=== PATIENT | male | born 1970 ===

== ENCOUNTER 2020-07-04 22:41 | Emergency (ER) | payer OTHER ==
[~2020-07-04] VITALS: Ht 180.3 cm; Wt 98.0 kg
[2020-07-04 23:02] LABS: Source, Urine Clean Catch
[2020-07-04 23:05] LABS: Bilirubin, Urine Neg (Neg); Blood, Urine Neg (Neg); Glucose Qualitative, Urine Neg (Neg); Ketones, Urine Neg (Neg); Leukocyte Esterase, Urine Neg (Neg); Nitrite, Urine Neg (Neg); Protein, Urine Neg (Neg); Urobilinogen, Urine NORM (Normal); pH, Urine 6.5 (5.0-8.0)
[2020-07-04 23:06] LABS: Appearance, Urine Clear (Clear); Color, Urine Yellow (P-Yellow)
[2020-07-05] MEDS ORDERED: Percocet 5-3251 EACH PO ×2 (00:20→01:41)
[2020-07-05] MEDS ORDERED: TAMS.4ER PO (00:20)
[2020-07-05 00:46] LABS: BASOPHILS ABSOLUTE AUTO 0.03 K/mm3 (0.00-0.23); BASOPHILS PERCENT AUTO 0 % (0-2); EOSINOPHILS PERCENT AUTO 1 % (0-6); Hematocrit 43.9 % (37.0-53.0); IMMATURE GRAN ABSOLUTE AUTO 0.04 K/mm3 (0.00-0.10); IMMATURE GRAN PERCENT AUTO 0 % (0-1); LYMPHOCYTES ABSOLUTE AUTO 1.16 K/mm3 (0.84-5.20); LYMPHOCYTES PERCENT AUTO 9 % (21-46); MONOCYTES ABSOLUTE AUTO 1.02 K/mm3 (0.16-1.47); MONOCYTES PERCENT AUTO 8 % (4-13); Mean Corpuscular HGB 28.8 pg (26.0-34.0); Mean Corpuscular HGB Conc 34.2 g/dL (31.5-36.5); Mean Corpuscular Volume 84 fL (80-100); Mean Platelet Volume 9.1 fL (9.1-12.4); NEUTROPHILS ABSOLUTE AUTO 10.08 K/mm3 (1.96-9.15); NEUTROPHILS PERCENT AUTO 81 % (41-73); Platelet Count 151 K/mm3 (150-400); RDW Coefficient Variation 12.6 % (11.7-14.2); RDW Standard Deviation 38.4 fL (35.1-46.3); Red Blood Cell Count 5.21 M/mm3 (4.30-5.90); White Blood Cell Count 12.43 K/mm3 (4.00-11.30)
[2020-07-05 01:02] LABS: Albumin, Blood 3.8 g/dL (3.4-5.0); Albumin/Globulin Ratio 1.1 (0.8-1.8); Bilirubin, Total 0.5 mg/dL (0.1-1.0); Calcium, Blood 8.8 mg/dL (8.5-10.1); Creatinine, Blood 1.46 mg/dL (0.60-1.20); Globulin, Blood 3.5 g/dL (2.2-4.0); Potassium, Blood 3.4 mmol/L (3.5-5.5); Total Protein, Blood 7.3 g/dL (6.4-8.2)
== END 2020-07-05 01:56 | disposition home or self-care (01) ==
LOC: ER 22:41
PROVIDERS: Emergency Medicine
DX: N13.2 Hydronephrosis with renal and ureteral calculous obstruction (principal); K76.0 Fatty (change of) liver, not elsewhere classified; R16.1 Splenomegaly, not elsewhere classified
CPT/HCPCS: 36415; 74176; 80053; 81003; 85025; 96374; 99284; A9270; J1885

== ENCOUNTER 2020-12-19 10:17 | Emergency (ER) | payer OTHER ==
[~2020-12-19] VITALS: Ht 175.3 cm; Wt 90.7 kg
[~2020-12-19 10:17] MED LIST: Percocet 5-3251 EACH PO; TAMS.4ER PO
== END 2020-12-19 11:34 | disposition home or self-care (01) ==
LOC: ER 10:17
DX: U07.1 COVID-19 (principal)
CPT/HCPCS: 99284

== ENCOUNTER 2020-12-25 21:45 | Inpatient (IN) | payer OTHER ==
[~2020-12-25] VITALS: Ht 175.3 cm; Wt 100.7 kg
[2020-12-25 23:46] LABS: BASOPHILS ABSOLUTE AUTO 0.01 K/mm3 (0.00-0.23); BASOPHILS PERCENT AUTO 0 % (0-2); EOSINOPHILS PERCENT AUTO 0 % (0-6); Hematocrit 41.6 % (37.0-53.0); Hemoglobin 14.7 g/dL (13.5-17.5); IMMATURE GRAN ABSOLUTE AUTO 0.03 K/mm3 (0.00-0.10); IMMATURE GRAN PERCENT AUTO 0 % (0-1); LYMPHOCYTES ABSOLUTE AUTO 0.72 K/mm3 (0.84-5.20); LYMPHOCYTES PERCENT AUTO 10 % (21-46); MONOCYTES PERCENT AUTO 7 % (4-13); Mean Corpuscular HGB 28.9 pg (26.0-34.0); Mean Corpuscular HGB Conc 35.3 g/dL (31.5-36.5); Mean Corpuscular Volume 82 fL (80-100); Mean Platelet Volume 9.6 fL (9.1-12.4); NEUTROPHILS ABSOLUTE AUTO 5.83 K/mm3 (1.96-9.15); NEUTROPHILS PERCENT AUTO 82 % (41-73); Platelet Count 127 K/mm3 (150-400); RDW Coefficient Variation 12.8 % (11.7-14.2); RDW Standard Deviation 38.5 fL (35.1-46.3); Red Blood Cell Count 5.08 M/mm3 (4.30-5.90); White Blood Cell Count 7.09 K/mm3 (4.00-11.30)
[2020-12-26 00:01] LABS: Alanine Aminotransfer (ALT/SGP 124 U/L (12-78); Albumin, Blood 2.9 g/dL (3.4-5.0); Albumin/Globulin Ratio 0.8 (0.8-1.8); Alk Phos 56 U/L (50-136); Anion Gap 6 mmol/L (6-16); Aspartate Aminotrans (AST/SGOT 93 U/L (12-37); Bilirubin, Total 0.5 mg/dL (0.1-1.0); Blood Urea Nitrogen 9 mg/dL (8-24); Bun/Creatinine Ratio 9.7 (12.0-20.0); CO2, Blood 26 mmol/L (21-32); Calcium, Blood 7.8 mg/dL (8.5-10.1); Chloride, Blood 97 mmol/L (98-108); Creatinine, Blood 0.92 mg/dL (0.60-1.20); Globulin, Blood 3.6 g/dL (2.2-4.0); Glomerular Filtration Rate >60 (60-); Glucose, Blood 162 mg/dL (70-99); Potassium, Blood 3.9 mmol/L (3.5-5.5); Sodium, Blood 129 mmol/L (136-145); Total Protein, Blood 6.5 g/dL (6.4-8.2)
[2020-12-26 05:07] LABS: Anion Gap 7 mmol/L (6-16); Blood Urea Nitrogen 11 mg/dL (8-24); Bun/Creatinine Ratio 11.4 (12.0-20.0); CO2, Blood 27 mmol/L (21-32); Calcium, Blood 7.7 mg/dL (8.5-10.1); Chloride, Blood 98 mmol/L (98-108); Creatinine, Blood 0.96 mg/dL (0.60-1.20); Glomerular Filtration Rate >60 (60-); Glucose, Blood 219 mg/dL (70-99); Potassium, Blood 3.9 mmol/L (3.5-5.5); Sodium, Blood 132 mmol/L (136-145)
--- NOTE | 2020-12-26 05:32 | NUR ---
shift summary pt rested well through night. alert and oriented, able to make needs known. cooperative with plan of care. swiss speaking, knows very little tajik. hand cutter phone at bedside. sats >90% on 5-6lnc. tele nsr - rate 60-70's. sba to commode, voids to urinal. no c/o pain. vss. call light within reach, bed in lowest position. will continue to monitor.
--- NOTE | 2020-12-26 20:28 | NUR ---
PT ATE 1/2 OF MEALS AND DENIED NAUSEA OR TASTE DISTURBANCE BUT REPORTED SEVERELY DIMINISHED APPETITE; PT ON 7LNC SATTING 92-94%; PT REPORTED FEELING "SUFFOCATING" FEELINGS IN HIS LUNGS BUT DENIED NEEDING ANY RX; MOBILE SOLUTIONS ARCHITECT PHONE NOT NEEDED AT THIS TIME BUT WOULD BE NECESSARY IF RN DID NOT SPEAK PT'S LANGUAGE; PT DENIES CONCERNS AT THIS TIME
--- NOTE | 2020-12-26 23:40 | NUR ---
ASSUMED CARE RECEIVED REPORT FROM LONDON TIN FLIPPER. PT TRANSFERRED TO MEDICAL FLOOR VIA BED, SETTLED IN TO ROOM. ON 7L/NC. VS REVIEWED,WNL. NO ACUTE NEEDS ASSESSED AT THIS TIME. CALL LIGHT, POSSESSIONS IN REACH. WCTM.
--- NOTE | 2020-12-27 05:45 | NUR ---
TRAIN ENGINEER SUMMARY PT ASLEEP, IN NAD. VS REVIEWED,WNL. O2 SATS IN LOW 90'S ON 8L/NC. PT DENIES SOB, DYSPNEA. APPEARED TO SLEEP WELL OVERNIGHT. NO ACUTE CONCERNS TO REPORT AT THIS TIME. CALL LIGHT, POSSESSIONS IN REACH, BED IN LOW AND LOCKED POSITION. WILL CONTINUE TO PROVIDE CARE UNTIL HANDOFF GIVEN TO ONCOMING RN.
--- NOTE | 2020-12-27 18:03 | NUR ---
SHIFT SUMMARY NO ACUTE CHANGES TO PRESENT THIS SHIFT. PT IS A&O, PLEASANT AND GRATEFUL FOR CAR. MOSTLY [place] SPEAKING. DR LAROSE IN TO SEE PT THIS AM. ABLE TO CLARIFY ORDERS AND EXPLAIN PLAN OF CARE BETTER SHE IS ABLE TO COMMUNICATE IN PORTUGUESE. PT IS EATING AND DRINKING. BIOX REMAINED ABOVE 90% TODAY. NO C/O SOB. DENIED FURTHER NEEDS AT THIS TIME. CALL LT IN REACH. USING URINAL AT BS INDEPENDENTLY.
--- NOTE | 2020-12-28 02:31 | NUR ---
REPORT GIVEN TO NICK ORTIZ. NO ACUTE CHANGES SINCE CHANGE OF SHIFT. PATIENT ALTERT AND ORIENTED, ABLE TO MAKE NEEDS KNOWN. PATIENT IS ON 9L VIA HIGH FLOW NC. HE ATTEMPTED TO PRONE THIS EVENING, UNSUARE OF HOW LONG HE WAS ABLE TO TOLERATE IT. HE IS PLEASANT AND COOPERATIVE WITH CARE. BED LOW AND LOCKED TRAN LIGHT WITHIN REACH.
--- NOTE | 2020-12-28 02:52 | NUR ---
RECEIVED REPORT FROM DIANA BARAJAS. ASSUMED CARE OF PT. WILL PROVIDE CARE THE REST OF SHIFT.
[2020-12-28 05:04] LABS: BASOPHILS ABSOLUTE AUTO 0.01 K/mm3 (0.00-0.23); BASOPHILS PERCENT AUTO 0 % (0-2); EOSINOPHILS PERCENT AUTO 0 % (0-6); Hematocrit 45.6 % (37.0-53.0); Hemoglobin 15.3 g/dL (13.5-17.5); IMMATURE GRAN ABSOLUTE AUTO 0.07 K/mm3 (0.00-0.10); IMMATURE GRAN PERCENT AUTO 1 % (0-1); LYMPHOCYTES ABSOLUTE AUTO 0.84 K/mm3 (0.84-5.20); LYMPHOCYTES PERCENT AUTO 11 % (21-46); MONOCYTES ABSOLUTE AUTO 0.82 K/mm3 (0.16-1.47); MONOCYTES PERCENT AUTO 11 % (4-13); Mean Corpuscular HGB 28.5 pg (26.0-34.0); Mean Corpuscular HGB Conc 33.6 g/dL (31.5-36.5); Mean Corpuscular Volume 85 fL (80-100); Mean Platelet Volume 9.2 fL (9.1-12.4); NEUTROPHILS ABSOLUTE AUTO 5.81 K/mm3 (1.96-9.15); NEUTROPHILS PERCENT AUTO 77 % (41-73); Platelet Count 206 K/mm3 (150-400); RDW Coefficient Variation 12.9 % (11.7-14.2); RDW Standard Deviation 39.8 fL (35.1-46.3); Red Blood Cell Count 5.36 M/mm3 (4.30-5.90); White Blood Cell Count 7.55 K/mm3 (4.00-11.30)
[2020-12-28 05:40] LABS: Alanine Aminotransfer (ALT/SGP 78 U/L (12-78); Albumin, Blood 2.6 g/dL (3.4-5.0); Albumin/Globulin Ratio 0.7 (0.8-1.8); Alk Phos 56 U/L (50-136); Anion Gap 7 mmol/L (6-16); Aspartate Aminotrans (AST/SGOT 28 U/L (12-37); Bilirubin, Total 0.4 mg/dL (0.1-1.0); Blood Urea Nitrogen 29 mg/dL (8-24); Bun/Creatinine Ratio 31.2 (12.0-20.0); CO2, Blood 28 mmol/L (21-32); Calcium, Blood 8.8 mg/dL (8.5-10.1); Chloride, Blood 101 mmol/L (98-108); Creatinine, Blood 0.93 mg/dL (0.60-1.20); Globulin, Blood 3.9 g/dL (2.2-4.0); Glomerular Filtration Rate >60 (60-); Glucose, Blood 202 mg/dL (70-99); Potassium, Blood 3.9 mmol/L (3.5-5.5); Sodium, Blood 136 mmol/L (136-145); Total Protein, Blood 6.5 g/dL (6.4-8.2)
--- NOTE | 2020-12-28 06:32 | NUR ---
SHIFT SUMMARY: PT A/O. ABLE TO STATE NEEDS APPROPRIATELY. MOSTLY FIJIAN SPEAKING. ABLE TO UNDERSTAND MOST THINGS. PT STATES HE'S BETTER. CURRENTLY O 9L VIA HIGH FLOW NC WITH SATS AT 91-92%. PT ABLE TO BREATHE DEEPLY TO BUMP SATS UP. SINUS AT 61 PER TELE MONITOR. MEDS WHOLE WITH WATER. WILL CONTINUE TO PROVIDE CARE UNTIL SHIFT REPORT.
--- NOTE | 2020-12-28 17:32 | NUR ---
SHIFT SUMMARY PT AOX4; CALLS APPROPRIATELY. HARD TO COMMUNICATE REGARDS TO LANGUAGE BARRIER AT TIMES, BUT ABLE TO MAKE NEEDS KNOWN. PT ENCOUARAGED TO PRONE POSITION. PLACED THE PT ON 10L BECAUSE PT WAS DESATING ON EXERTION; NOW BACK ON 9L HIGH 02 ON NC WITH LOW 90S% SATS. DENIES PAIN. BED IS IN THE LOWEST POSITION AND CALL LIGHT WITHIN REACH
[2020-12-29 06:19] LABS: BASOPHILS ABSOLUTE AUTO 0.03 K/mm3 (0.00-0.23); BASOPHILS PERCENT AUTO 0 % (0-2); EOSINOPHILS PERCENT AUTO 0 % (0-6); Hematocrit 48.4 % (37.0-53.0); IMMATURE GRAN ABSOLUTE AUTO 0.15 K/mm3 (0.00-0.10); IMMATURE GRAN PERCENT AUTO 2 % (0-1); LYMPHOCYTES ABSOLUTE AUTO 1.31 K/mm3 (0.84-5.20); LYMPHOCYTES PERCENT AUTO 15 % (21-46); MONOCYTES ABSOLUTE AUTO 1.04 K/mm3 (0.16-1.47); MONOCYTES PERCENT AUTO 12 % (4-13); Mean Corpuscular HGB 28.6 pg (26.0-34.0); Mean Corpuscular HGB Conc 33.1 g/dL (31.5-36.5); Mean Corpuscular Volume 87 fL (80-100); Mean Platelet Volume 9.3 fL (9.1-12.4); NEUTROPHILS ABSOLUTE AUTO 6.33 K/mm3 (1.96-9.15); NEUTROPHILS PERCENT AUTO 72 % (41-73); Platelet Count 228 K/mm3 (150-400); RDW Standard Deviation 40.9 fL (35.1-46.3); Red Blood Cell Count 5.59 M/mm3 (4.30-5.90); White Blood Cell Count 8.86 K/mm3 (4.00-11.30)
[2020-12-29 06:40] LABS: Alanine Aminotransfer (ALT/SGP 94 U/L (12-78); Albumin, Blood 2.8 g/dL (3.4-5.0); Albumin/Globulin Ratio 0.7 (0.8-1.8); Alk Phos 58 U/L (50-136); Anion Gap 5 mmol/L (6-16); Aspartate Aminotrans (AST/SGOT 42 U/L (12-37); Bilirubin, Total 0.6 mg/dL (0.1-1.0); Blood Urea Nitrogen 29 mg/dL (8-24); CO2, Blood 30 mmol/L (21-32); Calcium, Blood 8.7 mg/dL (8.5-10.1); Chloride, Blood 102 mmol/L (98-108); Creatinine, Blood 0.94 mg/dL (0.60-1.20); Globulin, Blood 3.9 g/dL (2.2-4.0); Glomerular Filtration Rate >60 (60-); Glucose, Blood 144 mg/dL (70-99); Potassium, Blood 3.9 mmol/L (3.5-5.5); Sodium, Blood 137 mmol/L (136-145); Total Protein, Blood 6.7 g/dL (6.4-8.2)
--- NOTE | 2020-12-29 06:57 | NUR ---
SHIFT SUMMARY PT IS A 50 Y/O MALE, ADMITTED FOR COVID AND IN ENHANCED PRECAUTIONS. HE IS A&O X 4, INDEPENDENT WITH THE URINAL. PT DESATS TO THE 80S WITH ANY EXERTION, CURRENTLY AT 9L O2 VIA NC. NO C/O NAUSEA OR PAIN. VITAL SIGNS OTHERWISE STABLE, TELE DC'D. NO ACUTE CHANGES IN PT CONDITION NOTED DURING THE NIGHT. WILL CONTINUE TO MONITOR AND TREAT PER EMAR UNTIL HAND OFF TO DAY SHIFT RN.
--- NOTE | 2020-12-29 18:06 | NUR ---
SHIFT SUMMARY PT AOX4; CALLS APPROPRIATELY. PT DENIES PAIN, DYSPNEA ON EXERTION. PT IS ON 9L OF 02 SATS HIGH 80'S TO LOW 90S. PT CAN DESAT TO LOW 80'S WHEN MOVING OR GOING TO THE BATHROOM. BED IS IN THE LOWEST POSITION AND CALL LIGHT WITHIN REACH
[2020-12-30 05:56] LABS: BASOPHILS ABSOLUTE AUTO 0.04 K/mm3 (0.00-0.23); BASOPHILS PERCENT AUTO 0 % (0-2); EOSINOPHILS PERCENT AUTO 0 % (0-6); Hematocrit 47.8 % (37.0-53.0); Hemoglobin 16.3 g/dL (13.5-17.5); IMMATURE GRAN ABSOLUTE AUTO 0.24 K/mm3 (0.00-0.10); IMMATURE GRAN PERCENT AUTO 2 % (0-1); LYMPHOCYTES ABSOLUTE AUTO 1.41 K/mm3 (0.84-5.20); LYMPHOCYTES PERCENT AUTO 14 % (21-46); MONOCYTES ABSOLUTE AUTO 0.98 K/mm3 (0.16-1.47); MONOCYTES PERCENT AUTO 10 % (4-13); Mean Corpuscular HGB 28.4 pg (26.0-34.0); Mean Corpuscular HGB Conc 34.1 g/dL (31.5-36.5); Mean Corpuscular Volume 83 fL (80-100); Mean Platelet Volume 9.5 fL (9.1-12.4); NEUTROPHILS PERCENT AUTO 74 % (41-73); Platelet Count 250 K/mm3 (150-400); RDW Coefficient Variation 12.6 % (11.7-14.2); RDW Standard Deviation 37.9 fL (35.1-46.3); Red Blood Cell Count 5.73 M/mm3 (4.30-5.90); White Blood Cell Count 10.07 K/mm3 (4.00-11.30)
--- NOTE | 2020-12-30 06:00 | NUR ---
SHIFT SUMMARY PT IS A 50 Y/O MALE, ADMITTED FOR ACUTE RESPIRATORY FAILURE R/T COVID AND IN ENHANCED ISOLATION. HE IS A&O X 4, 1PA OUT OF BED. HE IS CURRENTLY ON 9L HIGH FLOW VIA NC, SATTING > 90%. PT STATES HE IS STARTING TO FEEL BETTER. NO C/O NAUSEA OR PAIN. VITAL SIGNS STABLE. PT'S CALLED AND WAS UPDATED ON HIS CONDITION. NO ACUTE CHANGES IN PT CONDITION NOTED DURING THE NIGHT. WILL CONTINUE TO MONITOR AND TREAT PER EMAR UNTIL HAND OFF TO DAY SHIFT RN.
[2020-12-30 06:11] LABS: Alanine Aminotransfer (ALT/SGP 123 U/L (12-78); Albumin, Blood 2.8 g/dL (3.4-5.0); Albumin/Globulin Ratio 0.7 (0.8-1.8); Alk Phos 52 U/L (50-136); Anion Gap 6 mmol/L (6-16); Aspartate Aminotrans (AST/SGOT 53 U/L (12-37); Bilirubin, Total 0.6 mg/dL (0.1-1.0); Blood Urea Nitrogen 21 mg/dL (8-24); Bun/Creatinine Ratio 26.9 (12.0-20.0); CO2, Blood 23 mmol/L (21-32); Calcium, Blood 8.7 mg/dL (8.5-10.1); Chloride, Blood 105 mmol/L (98-108); Creatinine, Blood 0.78 mg/dL (0.60-1.20); Globulin, Blood 3.8 g/dL (2.2-4.0); Glomerular Filtration Rate >60 (60-); Glucose, Blood 122 mg/dL (70-99); Potassium, Blood 4.1 mmol/L (3.5-5.5); Sodium, Blood 134 mmol/L (136-145); Total Protein, Blood 6.6 g/dL (6.4-8.2)
--- NOTE | 2020-12-30 14:12 | NUR ---
It was nice to visit the patient again as I had first met him last Wednesday and we had a chance to get to know each other and pray together. I prayed for his full recovery so he could be reunited with his family as his is not fully well and he is concerned about his son. 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 I reassured him of God's awareness of his situation so he could rest easy and not feel like he is losing or wasting time allowing himself a full recovery.
--- NOTE | 2020-12-30 19:52 | NUR ---
SHIFT SUMMARY: PT A/O PLEASANT AND COOPERATIVE. PT O2 SATS 91-95% ON 9 LPM. SOB AT REST IS MILD. PT DENIED PAIN/N/V. NO CHANGES TO O2 TODAY. NO WORSENING SYMPTOMS.
[2020-12-31 05:26] LABS: BASOPHILS ABSOLUTE AUTO 0.06 K/mm3 (0.00-0.23); BASOPHILS PERCENT AUTO 1 % (0-2); EOSINOPHILS ABSOLUTE AUTO 0.03 K/mm3 (0.00-0.68); EOSINOPHILS PERCENT AUTO 0 % (0-6); Hematocrit 48.6 % (37.0-53.0); Hemoglobin 16.7 g/dL (13.5-17.5); IMMATURE GRAN ABSOLUTE AUTO 0.43 K/mm3 (0.00-0.10); IMMATURE GRAN PERCENT AUTO 4 % (0-1); LYMPHOCYTES ABSOLUTE AUTO 1.22 K/mm3 (0.84-5.20); LYMPHOCYTES PERCENT AUTO 10 % (21-46); MONOCYTES ABSOLUTE AUTO 1.09 K/mm3 (0.16-1.47); MONOCYTES PERCENT AUTO 9 % (4-13); Mean Corpuscular HGB 28.7 pg (26.0-34.0); Mean Corpuscular HGB Conc 34.4 g/dL (31.5-36.5); Mean Corpuscular Volume 84 fL (80-100); Mean Platelet Volume 9.1 fL (9.1-12.4); NEUTROPHILS ABSOLUTE AUTO 9.13 K/mm3 (1.96-9.15); NEUTROPHILS PERCENT AUTO 76 % (41-73); Platelet Count 277 K/mm3 (150-400); RDW Coefficient Variation 12.5 % (11.7-14.2); RDW Standard Deviation 37.8 fL (35.1-46.3); Red Blood Cell Count 5.82 M/mm3 (4.30-5.90); White Blood Cell Count 11.96 K/mm3 (4.00-11.30)
[2020-12-31 05:46] LABS: Alanine Aminotransfer (ALT/SGP 112 U/L (12-78); Albumin, Blood 2.9 g/dL (3.4-5.0); Albumin/Globulin Ratio 0.7 (0.8-1.8); Alk Phos 59 U/L (50-136); Anion Gap 5 mmol/L (6-16); Aspartate Aminotrans (AST/SGOT 24 U/L (12-37); Bilirubin, Total 0.8 mg/dL (0.1-1.0); Blood Urea Nitrogen 19 mg/dL (8-24); Bun/Creatinine Ratio 24.5 (12.0-20.0); CO2, Blood 26 mmol/L (21-32); Calcium, Blood 8.7 mg/dL (8.5-10.1); Chloride, Blood 104 mmol/L (98-108); Creatinine, Blood 0.77 mg/dL (0.60-1.20); Globulin, Blood 3.9 g/dL (2.2-4.0); Glomerular Filtration Rate >60 (60-); Glucose, Blood 119 mg/dL (70-99); Potassium, Blood 4.1 mmol/L (3.5-5.5); Sodium, Blood 135 mmol/L (136-145); Total Protein, Blood 6.8 g/dL (6.4-8.2)
--- NOTE | 2020-12-31 07:59 | NUR ---
SHIFT SUMMARY NO ACUTE CHANGES. PT IS A&O X4, ABLE TO CALL TO MAKE NEEDS KNOWN. GUINEAN SPEAKING, UNDERSTANDS LITHUANIAN WHEN SPOKEN CLEARLY AND SLOWLY. ROOM AIR, LUNG SOUNDS DIMINSHED THROUGH OUT. REPORT GIVEN TO DAY TIME NURSE. .
--- NOTE | 2020-12-31 18:03 | NUR ---
SHIFT SUMMARY NO ACUTE CHANGES NOTED TO PT THIS SHIFT. PT AAOX4, ABLE TO MAKE NEEDS KNOWN. PLEASANT AND COOPERATIVE TO CARE. NO C/O PAIN. NO C/O CP OR N&V. PT NOTED TO HAVE SOB WITH REST. PT CONT ON O2 9LPM VIA NC. SATS >91-94%. PT CONTINUES IV ABX ORDERED, NO ASE NOTED. BED AT LOWEST POSITION. CALL LIGHT WITHIN REACH.
--- NOTE | 2021-01-01 04:13 | NUR ---
YARD LABORER SUMMARY PT A/O X4. ABLE TO SPEAK LITTLE BIT OF SAMOAN. PT'S PRIMARY LANGUAGE IS GRENADIAN. CONTINUES TO BE ON 9L VIA OXYMIZER SATTING IN THE LOW TO MID 90'S. DENIES PAIN. SOME SOB WHILE AT REST. NO ACUTE CHANGES, CALL LIGHT WITHIN REACH, WILL CONTINUE TO MONITOR. NO ACUTE CHANGES, WILL CONTINUE TO MONITOR.
--- NOTE | 2021-01-01 19:01 | NUR ---
SHIFT SUMMARY NO ACUTE CHANGES NOTED TO PT THIS SHIFT. AAOX4, ABLE TO MAKE NEEDS KNOWN, PLEASANT AND COOPERATIVE TO CARE. NO C/O PAIN OR ANY DISCOMFORT THIS SHIFT. NO C/O CP OR N&V. PT ON 8 LPM O2 VIA NC, SATTING 91-94%. PT INDEPENDENTLY USES URINAL IN BED. BED AT LOWEST POSITION. CALL LIGHT WITHIN REACH.
--- NOTE | 2021-01-02 14:46 | NUR ---
Spiritual Care visit provided: actually was able to visit pt at the same time as Dr. Mercado. Pt had his on the phone so it was a four way conversation at the end of which I prayed for Jose and his family and the doctor. It was a special time of connection. Pt was very encouraged by the visit from both of us.
--- NOTE | 2021-01-02 17:23 | NUR ---
SHIFT SUMMARY PATIENT ALERT AND ORIENTED THROUGHOUT THIS SHIFT. PATIENT CALM AND COOPERATIVE WITH CARE THIS SHIFT. PATIENT TITRATED TO 5L O2 FROM 8L THIS AM. O2 SATS CURRENTLY 95-96%. PATIENT DENIES PAIN OR SOB THIS SHIFT. PATIENT CURRENTLY SITTING UP IN BED WATCHING TELEVISION.
[2021-01-03 04:32] LABS: BASOPHILS ABSOLUTE AUTO 0.02 K/mm3 (0.00-0.23); BASOPHILS PERCENT AUTO 0 % (0-2); EOSINOPHILS PERCENT AUTO 0 % (0-6); Hematocrit 45.5 % (37.0-53.0); Hemoglobin 15.8 g/dL (13.5-17.5); IMMATURE GRAN ABSOLUTE AUTO 0.21 K/mm3 (0.00-0.10); IMMATURE GRAN PERCENT AUTO 2 % (0-1); LYMPHOCYTES ABSOLUTE AUTO 0.79 K/mm3 (0.84-5.20); LYMPHOCYTES PERCENT AUTO 8 % (21-46); MONOCYTES ABSOLUTE AUTO 0.22 K/mm3 (0.16-1.47); MONOCYTES PERCENT AUTO 2 % (4-13); Mean Corpuscular HGB 28.6 pg (26.0-34.0); Mean Corpuscular HGB Conc 34.7 g/dL (31.5-36.5); Mean Corpuscular Volume 82 fL (80-100); NEUTROPHILS ABSOLUTE AUTO 8.28 K/mm3 (1.96-9.15); NEUTROPHILS PERCENT AUTO 87 % (41-73); Platelet Count 306 K/mm3 (150-400); RDW Coefficient Variation 12.2 % (11.7-14.2); RDW Standard Deviation 37.2 fL (35.1-46.3); Red Blood Cell Count 5.52 M/mm3 (4.30-5.90); White Blood Cell Count 9.52 K/mm3 (4.00-11.30)
[2021-01-03 04:59] LABS: Alanine Aminotransfer (ALT/SGP 90 U/L (12-78); Albumin, Blood 2.7 g/dL (3.4-5.0); Albumin/Globulin Ratio 0.7 (0.8-1.8); Alk Phos 57 U/L (50-136); Anion Gap 5 mmol/L (6-16); Aspartate Aminotrans (AST/SGOT 20 U/L (12-37); Bilirubin, Total 0.7 mg/dL (0.1-1.0); Blood Urea Nitrogen 24 mg/dL (8-24); Bun/Creatinine Ratio 26.7 (12.0-20.0); CO2, Blood 26 mmol/L (21-32); Calcium, Blood 8.5 mg/dL (8.5-10.1); Chloride, Blood 103 mmol/L (98-108); Glomerular Filtration Rate >60 (60-); Glucose, Blood 217 mg/dL (70-99); Potassium, Blood 4.7 mmol/L (3.5-5.5); Sodium, Blood 134 mmol/L (136-145); Total Protein, Blood 6.7 g/dL (6.4-8.2)
--- NOTE | 2021-01-03 06:48 | NUR ---
SUMMARY PT SLEPT WELL FOR MOST OF SHIFT. PT WAS TOLERATING 5LPM WELL. PT THIS AM COMPLAINED OF NOT BEING ABLE TO FEEL THE OXYGEN. PT DENIED SOB. O2 WAS TURNED UP TO 8LPM AND PT REPORTED THAT HE COULD FEEL THE O2. PT CURRENTLY SLEEPING AND IN NO DISTRESS. CALL LIGHT IN REACH.
--- NOTE | 2021-01-03 18:23 | NUR ---
SHIFT SUMMARY PATIENT ALERT AND ORIENTED, INDEPENDENT IN THE ROOM. PATIENT REDUCED TO 5L O2 FROM 8L THIS AM. PATIENT DENIES FEELING SOB. NO ACUTE CHANGES THIS SHIFT. PATIENT LYING IN BED THROUGHOUT MUCH OF THIS SHIFT, DENIES NEEDS.
[2021-01-04 05:21] LABS: BASOPHILS ABSOLUTE AUTO 0.02 K/mm3 (0.00-0.23); BASOPHILS PERCENT AUTO 0 % (0-2); EOSINOPHILS PERCENT AUTO 0 % (0-6); Hematocrit 44.9 % (37.0-53.0); Hemoglobin 15.5 g/dL (13.5-17.5); IMMATURE GRAN ABSOLUTE AUTO 0.15 K/mm3 (0.00-0.10); IMMATURE GRAN PERCENT AUTO 1 % (0-1); LYMPHOCYTES ABSOLUTE AUTO 0.79 K/mm3 (0.84-5.20); LYMPHOCYTES PERCENT AUTO 7 % (21-46); MONOCYTES ABSOLUTE AUTO 0.44 K/mm3 (0.16-1.47); MONOCYTES PERCENT AUTO 4 % (4-13); Mean Corpuscular HGB 28.7 pg (26.0-34.0); Mean Corpuscular HGB Conc 34.5 g/dL (31.5-36.5); Mean Corpuscular Volume 83 fL (80-100); Mean Platelet Volume 9.3 fL (9.1-12.4); NEUTROPHILS ABSOLUTE AUTO 9.45 K/mm3 (1.96-9.15); NEUTROPHILS PERCENT AUTO 87 % (41-73); Platelet Count 289 K/mm3 (150-400); RDW Coefficient Variation 12.4 % (11.7-14.2); RDW Standard Deviation 37.4 fL (35.1-46.3); White Blood Cell Count 10.85 K/mm3 (4.00-11.30)
[2021-01-04 05:49] LABS: Alanine Aminotransfer (ALT/SGP 80 U/L (12-78); Albumin, Blood 2.7 g/dL (3.4-5.0); Albumin/Globulin Ratio 0.7 (0.8-1.8); Alk Phos 53 U/L (50-136); Anion Gap 7 mmol/L (6-16); Aspartate Aminotrans (AST/SGOT 8 U/L (12-37); Bilirubin, Total 0.5 mg/dL (0.1-1.0); Blood Urea Nitrogen 23 mg/dL (8-24); Bun/Creatinine Ratio 32.2 (12.0-20.0); CO2, Blood 25 mmol/L (21-32); Calcium, Blood 8.6 mg/dL (8.5-10.1); Chloride, Blood 104 mmol/L (98-108); Creatinine, Blood 0.71 mg/dL (0.60-1.20); Globulin, Blood 3.7 g/dL (2.2-4.0); Glomerular Filtration Rate >60 (60-); Glucose, Blood 215 mg/dL (70-99); Potassium, Blood 4.4 mmol/L (3.5-5.5); Sodium, Blood 136 mmol/L (136-145); Total Protein, Blood 6.4 g/dL (6.4-8.2)
--- NOTE | 2021-01-04 12:40 | NUR ---
HOME OXYGEN STUDY. 92% ON ROOM AIR AT REST, HEART 59 BPM. DESAT TO 87% WITH AMBULATION ON ROOM AIR. TITRATED TO 5L TO MAINTAIN SATURATIONS 88-91%, HEART RATE 88 BPM. PER DOCTOR HARRIS, PATIENT TO BE ON 4L AT REST ALSO, DUE TO DYSPNEA WITH EXERTION. PREVIOUS ORDER WAS FOR 5L AT REST, AT PATIENT DISCRETION. CASE MANAGEMENT NOTIFIED.
[2021-01-04] MEDS ORDERED: Acetaminophen650 M1 PO (14:10)
[2021-01-04] MEDS ORDERED: ALBU90OI INH (14:11)
[2021-01-04] MEDS ORDERED: VITAMIN D31000 UNI1 PO (14:12)
[2021-01-04] MEDS ORDERED: FAMO20 PO (14:14)
[2021-01-04] MEDS ORDERED: ASPI325 PO (14:14)
[2021-01-04] MEDS ORDERED: Deltasone 10 mg10 MG (14:15)
[2021-01-04] MEDS ORDERED: METF500 PO (14:17)
--- NOTE | 2021-01-04 14:54 | NUR ---
DISCHARGED HOME. VERBALIZED UNDERSTANDING OF INSTRUCTIONS VIA FACETIME. ALL QUESTIONS ANSWERED. , HOUSE SUP, ANALYST NOTIFIED THAT PATIENT AND ARE CONCERNED PATIENT IS NOT WELL ENOUGH TO DISCHARGE HOME. ORDERS TO DISCHARGE PATIENT WITH OXYGEN, PER OXIMETRY STUDY, COMPLETED BY DIANA GONZALEZ. PATIENT NEEDS 4-5 L AT ALL TIMES. 4L AT REST AND 5 WITH EXERTION. MEDICAL TRANSPORT DUE TO STAIRS AT HOME, AND PATIENT WEAKNESS.
== END 2021-01-04 14:54 | disposition home or self-care (01) | DRG 871 ==
LOC: ER 21:45 → PCU 21:46 → MEDS 12-26 00:19 → PCU 12-26 00:19 → MEDS 12-26 23:45
PROVIDERS: Family Medicine; Physician Assistant; ADMIT Internal Medicine
PROC: 8E0ZXY6 Isolation (ICD-10-PCS; principal; 2020-12-26)
PROC: 3E0333Z Introduction of Anti-inflammatory into Peripheral Vein, Percutaneous Approach (ICD-10-PCS; 2020-12-26)
PROC: XW033E5 Introduction of Remdesivir Anti-infective into Peripheral Vein, Percutaneous Approach, New Technology Group 5 (ICD-10-PCS; 2020-12-26)
PROC: 3E03329 Introduction of Other Anti-infective into Peripheral Vein, Percutaneous Approach (ICD-10-PCS; 2020-12-26)
PROC: 5A0945A Assistance with Respiratory Ventilation, 24-96 Consecutive Hours, High Flow/Velocity Cannula (ICD-10-PCS; 2020-12-26)
DX: A41.89 Other specified sepsis (principal); U07.1 COVID-19; J12.82 Pneumonia due to coronavirus disease 2019; J96.01 Acute respiratory failure with hypoxia; E87.1 Hypo-osmolality and hyponatremia; Z79.899 Other long term (current) drug therapy; R73.9 Hyperglycemia, unspecified; I10 Essential (primary) hypertension; R73.03 Prediabetes; T38.0X5A Adverse effect of glucocorticoids and synthetic analogues, initial encounter; E66.3 Overweight; Z68.35 Body mass index [BMI] 35.0-35.9, adult; R65.20 Severe sepsis without septic shock
CPT/HCPCS: 36415; 71045; 71046; 71260; 80048; 80053; 82947; 83036; 83615; 84145; 85025; 85651; 86140; 93005; 93010; 94762; 96374; 96375; 99285-25; A9270; J0696; J1100; J1650; J1815; J1940; J2930; J7030; J7050; Q9967